=== PATIENT | female | born 1990 | race Caucasian/White ===

== ENCOUNTER 2020-09-21 10:11 | Emergency (ER) | payer OTHER, SELFPAY ==
--- NOTE | ~2020-09-21 | CT_ITS ---
EXAMINATION: CT ANGIOGRAM OF THE CHEST WITH AND WITHOUT CONTRAST (CT PULMONARY ANGIOGRAM FOR PE) CLINICAL INFORMATION: Reason for Exam + covid 13 days ago c persistent fevers, cough, sob.chest pa COMPARISON: None TECHNIQUE: Prior to contrast administration, noncontrast localization images were obtained. Subsequently, multidetector volumetric imaging was performed from the thoracic inlet to below the diaphragms following the administration of 70 mL Omnipaque 350 intravenous contrast. No contrast reaction reported Sagittal, coronal, and MIP oblique sagittal reformatted images were obtained on the CT workstation, uploaded to PACS, and reviewed. This CT examination was performed using dose optimization techniques as appropriate, variously including the following: *Automated exposure control *Adjustment of mA and/or kV according to patient size (this includes techniques or standardized protocols for targeted exams where dose is matched to indication/reason for exam; i.e. extremities or head) *Use of iterative reconstruction technique Total exam dose-length product 343 mGy-cm FINDINGS: QUALITY OF STUDY/CONTRAST BOLUS: Opacification of the pulmonary arteries is limited due to timing of contrast injection. PULMONARY ARTERIES: There is no evidence of central pulmonary embolism. Evaluation of the smaller segmental and subsegmental pulmonary arteries is limited. THORACIC AORTA: No aneurysm or dissection. LUNG: The lung volumes are low. There is patchy bilateral airspace disease and nodular opacities. This is greatest in the left lower lobe. This probably represents pneumonia. PLEURA: No pleural effusion or pneumothorax. MEDIASTINUM: Normal heart size. No pericardial effusion. No hilar or mediastinal lymphadenopathy. No evidence of septal bowing or right heart strain. CHEST WALL/AXILLA: There is shotty bilateral axillary lymphadenopathy. No chest wall mass is seen. OSSEOUS STRUCTURES: No acute or suspicious osseous abnormality. UPPER ABDOMEN: The gallbladder has been removed. No reflux of contrast into the hepatic veins to suggest elevated right heart pressures. CT/CT angio chest PE protocol IMPRESSION: Limited exam. There is no evidence of large or central pulmonary embolism. Evaluation of the segmental and subsegmental pulmonary arteries is limited due to timing of contrast injection. Bilateral nodular opacities and airspace disease suggestive of pneumonia. VTE: negative
[2020-09-21 10:30] VITALS: BP 128/68; BP 130/62; PULSE 100; RESP 14; TEMP 37.1; O2SAT 95; O2SAT 99; BMI 39.0
--- NOTE | 2020-09-21 10:54 | ECG_ITS ---
Test Reason : Chest pain/shortness of breath positive COVID Blood Pressure : / mmHG Vent. Rate : 106 BPM Atrial Rate : 106 BPM P-R Int : 140 ms QRS Dur : 072 ms QT Int : 328 ms P-R-T Axes : 040 023 -01 degrees QTc Int : 435 ms Artifact in tracing Sinus tachycardia Nonspecific T wave abnormality Abnormal ECG When compared to the previous EKG of [address] and T wave abnormality more prominent Referred By: Altagracia Wilson Electronically Signed By:ALINA NEWMAN
[2020-09-21 11:21] LABS: MANUAL DIFF FLAG NO
[2020-09-21 11:24] LABS: Basophils Percent Auto 0.1 % (0-2); Hematocrit 36.7 % (37-47); Hemoglobin 11.7 g/dl (12.0-16.0); Imm Gran Abs Auto 0.08 X10*3/uL (0.00-0.03); Imm Gran Pct Auto 0.7 % (0.0-0.4); Lymphocytes Absolute Auto 1.4 X10*3/uL (1.2-4.9); Lymphocytes Percent Auto 11.2 % (20-40); Mean Corpuscular HGB Conc 31.9 g/dl (31.0-35.0); Mean Corpuscular Hemoglobin 25.2 pg (27.0-33.0); Mean Corpuscular Volume 79.1 fL (80-98); Mean Platelet Volume 9.5 fL (9.4-12.3); Monocytes Absolute Auto 0.6 X10*3/uL (0.1-1.2); Monocytes Percent Auto 4.9 % (2-11); Neutrophils Percent Auto 83.1 % (45-73); Platelet Count 323 X10*3/uL (160-400); Red Blood Count 4.64 X10*6/uL (4.20-5.50); Red Cell Distribution Width 15.8 % (11.0-16.0)
[2020-09-21 11:32] LABS: INTERNATIONAL NORM RATIO 1.2 (0.9-1.1)
[2020-09-21 11:34] LABS: Partial Thromboplastin Time 35.2 SEC (24.1-38.0)
[2020-09-21 11:36] LABS: D Dimer < 200 NG/ML
[2020-09-21 11:52] LABS: C Reactive Protein 8.14 mg/dL (< or = 0.50); Lactate Dehydrogenase 391 U/L (122-220); Magnesium 1.9 mg/dL (1.6-2.6)
[2020-09-21 11:57] LABS: B Type Natriuretic Peptide < 10 pg/mL (<100); Troponin-I High Sensitivity < 3.5 ng/L (<3.5-17.0)
[2020-09-21 12:01] LABS: Influenza A PCR NEGATIVE (Negative); Influenza B PCR NEGATIVE (Negative); Resp Syncy Virus RNA Qual PCR NEGATIVE (Negative); SARS COV2 PCR INHOUSE POSITIVE (Negative)
[2020-09-21 12:11] LABS: Procalcitonin 0.06 ng/mL
[2020-09-21 12:13] LABS: Ferritin 298 ng/mL (10-122)
--- NOTE | 2020-09-21 12:23 | ED.SOB ---
HPI - SOB/Dyspnea General Chief Complaint: Upper Respiratory Symptoms Stated Complaint: covid Time Seen by Provider: 09/21/20 10:35 Source: patient and EMS Mode of arrival: EMS Limitations: language barrier ([place]-speaking) History of Present Illness HPI Narrative: 30-year-old female with a past medical history of anxiety, depression, leukocytosis and recently tested positive approximately 13 days ago for COVID 19 presenting to the ED via EMS with complaints of fevers, dry cough with shortness of breath with pain on deep inspiration with associated chest tightness for the past 13 days worse today. Reports she called her PCP and they instructed her to come here for further evaluation treatment to rule out pneumonia. Patient reports all her other family members in the same household are better and she is not. She denies any headaches, dizziness, lightheadedness, changes in vision, jaw pain, paresthesias, neck pain/stiffness, nausea/vomiting, abdominal pain, back pain, dysuria, hematuria, black or bloody stools, diarrhea or constipation or lower extremity edema or any other symptoms complaints or concerns at this time. MD elicited complaint: shortness of breath, cough, pain with inspiration and chest pain Pertinent past history: other (Tested positive for COVID 13 days ago) Onset (ago): day(s) (Thirteen days worse today) Context: recent illness Timing: constant and progressively worsening Severity: severe Exacerbating factors: coughing, inspiration and deep breaths Relieving factors: nothing Known history of: other (COVID positive) Associated symptoms: pain with inspiration and cough Treatment prior to arrival: none Related Data Home oxygen amount: none Previous Rx's Medication Instructions Recorded acetaminophen [Tylenol Extra 1,000 mg PO QID PRN #14 tab 09/21/20 Strength] albuterol sulfate 0.63 mg INHALATION QID PRN #75 ml 09/21/20 azithromycin See Rx Instructions .ROUTE 09/21/20 .COMPLEX #6 tab codeine-guaifenesin 5 ml PO Q6H PRN #473 ml 09/21/20 dexamethasone [Decadron] 6 mg PO DAILY 7 Days #7 tab 09/21/20 doxycycline monohydrate 100 mg PO BID 10 Days #20 cap 09/21/20 ibuprofen 800 mg PO Q8H PRN #14 tab 09/21/20 Allergies Allergy/AdvReac Type Severity Reaction Status Date / Time No Known Allergies Allergy Unverified 03/01/20 17:16 Review of Systems Review of Systems: Constitutional : + Fevers/chills, + fatigues, + malaise, No Weight loss, No Night Sweats ENT/Mouth : No Hearing loss, No Ear Pain, No Nasal Congestion, No Sinus Pain, No Hoarseness, No sore throat, No Rhinorrhea, No Swallowing Difficulty Eyes: No Eye Pain, No Swelling, No Redness, No Foreign Body, No Discharge, No Vision Changes Cardiovascular : + SOB, + Chest tightness, no Dyspnea on Exertion, No Orthopnea, No Edema, No extremity swelling, No Palpitations Respiratory : No Cough, No Sputum, No Wheezing, No Dyspnea Gastrointestinal : No Nausea, No Vomiting, No Diarrhea, No abdominal Pain, No Hematochezia, No Melena Genitourinary : No irregular bleeding, No Dysuria, No Urinary Frequency, No Hematuria, No Urinary Incontinence, No Urgency, No Flank Pain, No Urinary Flow Changes, No nHesitancy Musculoskeletal : No joint pain, No Myalgias, No Joint Swelling Skin : No Skin Lesions, No rash Neuro : No Weakness, No Numbness, No Paresthesias, No Loss of Consciousness, No Dizziness, No Headache Psych : No Anxiety/Panic, No Depression, No SI/HI/AH/VH Heme/Lymph: No Bruising, No Bleeding,No Lymphadenopathy Endocrine : No Polyuria, No Polydipsia, No Temperature Intolerance Yes all other systems are reviewed and are negative [facility] Past Medical History Attestation statement: The following information was validated with the patient. Social History Social History Advance Directives: No Advance Directives Information Provided: No Physical Exam Vital Signs: Vital Signs: Last Vital Signs Temp 100.0 F 09/21/20 15:01 Pulse 110 H 09/21/20 15:01 Resp 18 09/21/20 15:01 BP 126/84 09/21/20 15:01 Pulse Ox 95 09/21/20 15:01 Body Mass Index 39.0 vital signs have been reviewed as normal and appeared to be correct. Blood pressure normal. Heart rate normal. Respiration rate normal. Temperature normal. Oxygen saturation normal. Appearance: Alert. Oriented X3. In mild acute respiratory distress otherwise no other acute distress. Head: Normal external exam. Normocephalic. Eyes: PERRLA. EOMI. Conjunctiva and sclera normal. Eyelids normal. ENT: Pharynx normal. Uvula midline. Moist mucous membranes. No trismus noted. No drooling noted. No muffled voice noted. Neck: Normal inspection. Neck supple. FROM. No adenopathy. No meningeal signs. CVS: Normal heart rate and rhythm. Heart sound normal. No murmurs noted. Pulses normal throughout. Respiratory: Mild respiratory distress. Patient with decreased breath sounds throughout with pain on inspiration. Otherwise No wheezes/rales/rhonchi noted. Chest nontender. No accessory muscle usage noted. Abdomen: Soft and nontender. Nondistended. No guarding. No rigidity. Bowel sounds normal in all 4 quadrants. No distention noted. No organomegaly noted. No visible injury noted. No rebound tenderness. Negative Rovsing sign. Negative obturator's sign. Negative psoas sign. Negative Díaz sign. Back: No CVA tenderness. Full range of motion noted. Skin: Skin warm and dry. Normal skin color. Normal skin turgor. No rashes/lesions/lacerations noted. Extremities: No lower extremity edema noted. No calf tenderness noted. Extremities exhibit normal range of motion. Extremities nontender. Neuro: Oriented X 3. No motor deficit. No sensory deficit. Reflexes normal. Course Course Course Narrative: 10:55am - 30-year-old female who tested positive approximately 13 days ago for COVID-19 presenting to the ED with complaints of fevers, dry cough with shortness of breath with pain on deep inspiration with associated chest tightness for the past 13 days worse today. - on exam patient is alert and oriented x3. In mild respiratory distress with decreased breath sounds throughout and pain on inspiration otherwise no wheezes/rales/rhonchi noted. Chest is nontender. CV RRR. Abdomen is soft and nontender. No focal neuro deficits are noted. No lower extremity edema noted. No calf tenderness noted. - Plan: Labs, CT scan of chest for PE, EKG, blood cultures, lactic acid. Provide a L of IV fluids with 2 g of Rocephin, 10 mg of Robitussin with codeine and 10 mg of IV Decadron then re-evaluate. Reevaluation(s) Reevaluation #1: - patient with elevated white blood cell count and elevated COVID labs otherwise all other labs were within normal limits including troponin and BNP. Serum quant negative for . UA negative for or evidence of UTI. Patient still positive for COVID although she understood this. - EKG was normal sinus tachycardia no acute ischemic changes were noted. - CTA of chest for PE negative for PE although revealed pneumonia. - patient's oxygen saturation is at 95% on room air even with walking therefore she does not need admission at this time - patient reports she feels better after the breathing treatment the Robitussin with codeine and the IV Decadron and fluids - therefore will DC home at this time with instructions to monitor her oxygen saturation and with antibiotics and Decadron instructions to return if any new or worsening symptoms to follow up with primary care provider and to continue self isolating. Patient understands agrees with this plan. Time: 16:01 MDM - SOB/Dyspnea Medical Records Attestation: I reviewed the patient's medical records. Lab Data Attestation: I reviewed the patient's lab results. Result diagrams: 09/21/20 11:07 09/21/20 11:07 Labs: Lab Results 09/21/20 09/21/20 09/21/20 Range/Units 11:07 11:07 11:07 WBC 12.0 H (4.8-10.8) X10*3/uL RBC 4.64 (4.20-5.50) X10*6/uL Hgb 11.7 L (12.0-16.0) g/dl Hct 36.7 L (37-47) % MCV 79.1 L (80-98) fL MCH 25.2 L (27.0-33.0) pg MCHC 31.9 (31.0-35.0) g/dl RDW 15.8 (11.0-16.0) % Plt Count 323 (160-400) X10*3/uL MPV 9.5 (9.4-12.3) fL Immature Gran % (Auto) 0.7 H (0.0-0.4) % Neut % (Auto) 83.1 H (45-73) % Lymph % (Auto) 11.2 L (20-40) % [place] % (Auto) 4.9 (2-11) % Eos % (Auto) 0.0 (0-4) % Baso % (Auto) 0.1 (0-2) % Lymph # (Auto) 1.4 (1.2-4.9) X10*3/uL [place] # (Auto) 0.6 (0.1-1.2) X10*3/uL Eos # (Auto) 0.0 (0.0-0.4) X10*3/uL Baso # (Auto) 0.0 (0.0-0.2) X10*3/uL Abs Immat Gran (auto) 0.08 H (0.00-0.03) X10*3/uL Absolute Neuts (auto) 10.0 H (2.0-8.3) X10*3/uL Absolute Nucleated RBC 0.000 (0.0-0.012) X10*3/uL Nucleated RBC % (auto) 0.0 (0.0-0.2) /100WBC PT 14.0 H (10.8-13.0) SEC INR 1.2 H (0.9-1.1) APTT 35.2 (24.1-38.0) SEC D-Dimer < 200 NG/ML Sodium (135-145) mmol/L Potassium (3.3-5.1) mmol/L Chloride (96-108) mmol/L Carbon Dioxide (22-29) mmol/L Anion Gap (12-20) BUN (9-16) mg/dL Creatinine (0.5-1.4) mg/dL Estim Creat Clear Calc Estimated GFR Random Glucose (60-115) mg/dL Calcium (8.4-10.2) mg/dL Magnesium 1.9 (1.6-2.6) mg/dL Ferritin (10-122) ng/mL Total Bilirubin (0.0-1.0) mg/dL AST (5-31) U/L ALT (0-31) U/L Alkaline Phosphatase (39-117) U/L Lactate Dehydrogenase 391 H (122-220) U/L Troponin I High Sens (<3.5-17.0) ng/L C-Reactive Protein 8.14 H (< or = 0.50) mg/dL B-Natriuretic Peptide (<100) pg/mL Total Protein (6.5-8.0) g/dL Albumin (3.5-5.0) g/dL Procalcitonin ng/mL Beta HCG, Quant mIU/mL Urine Color Urine Appearance Urine pH (5.0-8.0) Ur Specific [place] (1.005-1.025) Urine Protein (NEG-TRACE) MG/DL Urine Glucose (UA) (NEG) MG/DL Urine Ketones (NEG) MG/DL Urine Blood (NEG) Urine Nitrite (NEG) Ur Leukocyte Esterase (NEG) Urine RBC (0) /HPF Urine WBC (0-4) /HPF Ur Squamous Epith Cells /LPF Urine Bacteria /LPF Urine Test (NEGATIVE) Coronavirus (PCR) (Negative) Influenza Type A (PCR) (Negative) Influenza Type B (PCR) (Negative) RSV RNA Qual (PCR) (Negative) 09/21/20 09/21/20 09/21/20 Range/Units 11:07 11:07 11:07 WBC (4.8-10.8) X10*3/uL RBC (4.20-5.50) X10*6/uL Hgb (12.0-16.0) g/dl Hct (37-47) % MCV (80-98) fL MCH (27.0-33.0) pg MCHC (31.0-35.0) g/dl RDW (11.0-16.0) % Plt Count (160-400) X10*3/uL MPV (9.4-12.3) fL Immature Gran % (Auto) (0.0-0.4) % Neut % (Auto) (45-73) % Lymph % (Auto) (20-40) % [place] % (Auto) (2-11) % Eos % (Auto) (0-4) % Baso % (Auto) (0-2) % Lymph # (Auto) (1.2-4.9) X10*3/uL [place] # (Auto) (0.1-1.2) X10*3/uL Eos # (Auto) (0.0-0.4) X10*3/uL Baso # (Auto) (0.0-0.2) X10*3/uL Abs Immat Gran (auto) (0.00-0.03) X10*3/uL Absolute Neuts (auto) (2.0-8.3) X10*3/uL Absolute Nucleated RBC (0.0-0.012) X10*3/uL Nucleated RBC % (auto) (0.0-0.2) /100WBC PT (10.8-13.0) SEC INR (0.9-1.1) APTT (24.1-38.0) SEC D-Dimer NG/ML Sodium 139 (135-145) mmol/L Potassium 3.7 (3.3-5.1) mmol/L Chloride 104 (96-108) mmol/L Carbon Dioxide 24 (22-29) mmol/L Anion Gap 15 (12-20) BUN 7 L (9-16) mg/dL Creatinine 0.57 (0.5-1.4) mg/dL Estim Creat Clear Calc 161.2 Estimated GFR > 60 Random Glucose 89 (60-115) mg/dL Calcium 8.5 (8.4-10.2) mg/dL Magnesium (1.6-2.6) mg/dL Ferritin 298 H (10-122) ng/mL Total Bilirubin 0.7 (0.0-1.0) mg/dL AST 63 H (5-31) U/L ALT 82 H (0-31) U/L Alkaline Phosphatase 128 H (39-117) U/L Lactate Dehydrogenase (122-220) U/L Troponin I High Sens < 3.5 (<3.5-17.0) ng/L C-Reactive Protein (< or = 0.50) mg/dL B-Natriuretic Peptide < 10 (<100) pg/mL Total Protein 7.1 (6.5-8.0) g/dL Albumin 4.1 (3.5-5.0) g/dL Procalcitonin ng/mL Beta HCG, Quant < 2 mIU/mL Urine Color Urine Appearance Urine pH (5.0-8.0) Ur Specific [place] (1.005-1.025) Urine Protein (NEG-TRACE) MG/DL Urine Glucose (UA) (NEG) MG/DL Urine Ketones (NEG) MG/DL Urine Blood (NEG) Urine Nitrite (NEG) Ur Leukocyte Esterase (NEG) Urine RBC (0) /HPF Urine WBC (0-4) /HPF Ur Squamous Epith Cells /LPF Urine Bacteria /LPF Urine Test (NEGATIVE) Coronavirus (PCR) POSITIVE A (Negative) Influenza Type A (PCR) NEGATIVE (Negative) Influenza Type B (PCR) NEGATIVE (Negative) RSV RNA Qual (PCR) NEGATIVE (Negative) 09/21/20 09/21/20 09/21/20 Range/Units 11:07 13:52 13:52 WBC (4.8-10.8) X10*3/uL RBC (4.20-5.50) X10*6/uL Hgb (12.0-16.0) g/dl Hct (37-47) % MCV (80-98) fL MCH (27.0-33.0) pg MCHC (31.0-35.0) g/dl RDW (11.0-16.0) % Plt Count (160-400) X10*3/uL MPV (9.4-12.3) fL Immature Gran % (Auto) (0.0-0.4) % Neut % (Auto) (45-73) % Lymph % (Auto) (20-40) % [place] % (Auto) (2-11) % Eos % (Auto) (0-4) % Baso % (Auto) (0-2) % Lymph # (Auto) (1.2-4.9) X10*3/uL [place] # (Auto) (0.1-1.2) X10*3/uL Eos # (Auto) (0.0-0.4) X10*3/uL Baso # (Auto) (0.0-0.2) X10*3/uL Abs Immat Gran (auto) (0.00-0.03) X10*3/uL Absolute Neuts (auto) (2.0-8.3) X10*3/uL Absolute Nucleated RBC (0.0-0.012) X10*3/uL Nucleated RBC % (auto) (0.0-0.2) /100WBC PT (10.8-13.0) SEC INR (0.9-1.1) APTT (24.1-38.0) SEC D-Dimer NG/ML Sodium (135-145) mmol/L Potassium (3.3-5.1) mmol/L Chloride (96-108) mmol/L Carbon Dioxide (22-29) mmol/L Anion Gap (12-20) BUN (9-16) mg/dL Creatinine (0.5-1.4) mg/dL Estim Creat Clear Calc Estimated GFR Random Glucose (60-115) mg/dL Calcium (8.4-10.2) mg/dL Magnesium (1.6-2.6) mg/dL Ferritin (10-122) ng/mL Total Bilirubin (0.0-1.0) mg/dL AST (5-31) U/L ALT (0-31) U/L Alkaline Phosphatase (39-117) U/L Lactate Dehydrogenase (122-220) U/L Troponin I High Sens (<3.5-17.0) ng/L C-Reactive Protein (< or = 0.50) mg/dL B-Natriuretic Peptide (<100) pg/mL Total Protein (6.5-8.0) g/dL Albumin (3.5-5.0) g/dL Procalcitonin 0.06 ng/mL Beta HCG, Quant mIU/mL Urine Color DARK YELLOW Urine Appearance HAZY Urine pH 6.0 (5.0-8.0) Ur Specific [place] 1.025 (1.005-1.025) Urine Protein TRACE (NEG-TRACE) MG/DL Urine Glucose (UA) NEG (NEG) MG/DL Urine Ketones NEG (NEG) MG/DL Urine Blood TRACE (NEG) Urine Nitrite NEG (NEG) Ur Leukocyte Esterase NEG (NEG) Urine RBC 0-2 (0) /HPF Urine WBC 0 (0-4) /HPF Ur Squamous Epith Cells TRACE /LPF Urine Bacteria NONE /LPF Urine Test NEGATIVE (NEGATIVE) Coronavirus (PCR) (Negative) Influenza Type A (PCR) (Negative) Influenza Type B (PCR) (Negative) RSV RNA Qual (PCR) (Negative) Imaging Data CT of chest for PE: Attestation: I personally reviewed and interpreted this imaging study as follows: Radiologist's impression: FINDINGS: QUALITY OF STUDY/CONTRAST BOLUS: Opacification of the pulmonary arteries is limited due to timing of contrast injection. PULMONARY ARTERIES: There is no evidence of central pulmonary embolism. Evaluation of the smaller segmental and subsegmental pulmonary arteries is limited. THORACIC AORTA: No aneurysm or dissection. LUNG: The lung volumes are low. There is patchy bilateral airspace disease and nodular opacities. This is greatest in the left lower lobe. This probably represents pneumonia. PLEURA: No pleural effusion or pneumothorax. MEDIASTINUM: Normal heart size. No pericardial effusion. No hilar or mediastinal lymphadenopathy. No evidence of septal bowing or right heart strain. CHEST WALL/AXILLA: There is shotty bilateral axillary lymphadenopathy. No chest wall mass is seen. OSSEOUS STRUCTURES: No acute or suspicious osseous abnormality. UPPER ABDOMEN: The gallbladder has been removed. No reflux of contrast into the hepatic veins to suggest elevated right heart pressures. CT/CT angio chest PE protocol IMPRESSION: Limited exam. There is no evidence of large or central pulmonary embolism. Evaluation of the segmental and subsegmental pulmonary arteries is limited due to timing of contrast injection. Bilateral nodular opacities and airspace disease suggestive of pneumonia. VTE: negative ECG Data Attestation: I personally reviewed and interpreted this ECG as follows: ECG interpretation date: 09/21/20 ECG interpretation time: 11:27 Interpretation: Sinus tachycardia with fusion complexes with a ventricular rate of 106 with nonspecific T-wave abnormalities no acute ischemic changes noted. Compared to prior EKG 11/20/2005 Critical Care Time Critical Care Time Critical Care Time: Yes Total Critical Care Time: 60 Attestation: I personally attest to this time spent taking care of the patient Discharge Plan Discharge Clinical Impression: COVID-19, Pneumonia due to COVID-19 virus Patient Disposition: Home, Self-Care Instructions: Pneumonia (ED), COVID-19 (Coronavirus Disease 2019) (ED) Prescriptions: New dexamethasone [Decadron] 6 mg tablet 6 mg PO DAILY 7 Days Qty: 7 RF: 0 albuterol sulfate 0.63 mg/3 mL solution for nebulization 0.63 mg inhalation QID PRN (Reason: shortness of breath or wheezing) Qty: 75 RF: 0 azithromycin 250 mg tablet See Rx Instructions .ROUTE .COMPLEX Qty: 6 RF: 0 acetaminophen [Tylenol Extra Strength] 500 mg tablet 1,000 mg PO QID PRN (Reason: fever or pain) Qty: 14 RF: 0 doxycycline monohydrate 100 mg capsule 100 mg PO BID 10 Days Qty: 20 RF: 0 ibuprofen 800 mg tablet 800 mg PO Q8H PRN (Reason: pain) Qty: 14 RF: 0 codeine-guaifenesin 10-200 mg/5 mL liquid 5 ml PO Q6H PRN (Reason: cough ) Qty: 473 RF: 0 Referrals: Osito Day MD [Primary Care Provider] - 2 days Print Language: [place]
[2020-09-21] MEDS: Albuterol Sulfate (0.083%) 2.5 MG/3 ML VIAL.NEB 5 MG INHALE (12:27)
[2020-09-21 12:29] VITALS: PULSE 114; O2SAT 95
[2020-09-21 13:04] LABS: HCG Quantitative < 2 mIU/mL
[2020-09-21 13:08] LABS: Alanine Aminotransferase 82 U/L (0-31); Albumin Level 4.1 g/dL (3.5-5.0); Alkaline Phosphatase 128 U/L (39-117); Anion Gap 15 (12-20); Aspartate Amino Transferase 63 U/L (5-31); Bilirubin Total 0.7 mg/dL (0.0-1.0); Blood Urea Nitrogen 7 mg/dL (9-16); Calcium 8.5 mg/dL (8.4-10.2); Carbon Dioxide 24 mmol/L (22-29); Chloride 104 mmol/L (96-108); Creatinine Clr Calc Pharmacy 161.2; Estimated Glomerular Filt Rate > 60; Glucose Random 89 mg/dL (60-115); Potassium 3.7 mmol/L (3.3-5.1); Sodium 139 mmol/L (135-145); Total Protein 7.1 g/dL (6.5-8.0)
[2020-09-21] MEDS: cefTRIAXone sodium 2 GM in 0.9 % Sodium Chloride 50 ML IV (13:53)
[2020-09-21] MEDS: 0.9 % Sodium Chloride 1,000 ML 999 ML IVCONT (13:53)
[2020-09-21] MEDS: guaiFEN/Codeine SF 200/20/10ML 10 ML LIQUID PO (13:53)
[2020-09-21 14:13] LABS: Glucose Urine UA NEG (NEG); Leukocyte Esterase Urine NEG (NEG); Nitrite Urine NEG (NEG); Specific Gravity - Urine 1.025 (1.005-1.025); Urine Blood TRACE (NEG); Urine Ketones NEG (NEG); Urine Protein TRACE MG/DL (NEG-TRACE)
[2020-09-21 14:14] LABS: Appearance Urine HAZY; Color Urine DARK YELLOW
[2020-09-21 14:16] LABS: UPreg QC Valid YES; Urine Pregnancy NEGATIVE (NEGATIVE)
[2020-09-21 14:26] LABS: RBC Urine 0-2 /HPF (0); Squamous Epithelial Cell Urine TRACE /LPF; WBC Urine 0 /HPF (0-4)
[2020-09-21] MEDS: iohexoL 350 MG/ML 100 ML INFUS..BTL IV (14:41)
[2020-09-21 15:01] VITALS: BP 126/84; PULSE 110; RESP 18; TEMP 37.8; O2SAT 95
[2020-09-21] MEDS: Acetaminophen 325 MG TABLET 975 MG PO (15:41)
--- NOTE | 2020-09-21 15:53 | PC.NURSE ---
PT DRINKING PO FLUIDS, RESP WNL, NO DIFF BREATHING OR CP, NO CYANOSIS.
== END 2020-09-21 16:35 | disposition home or self-care (01) ==
PROVIDERS: Physician Assistant Medical; Emergency Provider Emergency Medicine; PCP Internal Medicine
DX: U07.1 COVID-19 (principal); J12.82 Pneumonia due to coronavirus disease 2019; R00.0 Tachycardia, unspecified; R50.9 Fever, unspecified
CPT/HCPCS: 0241U; 36415; 71275; 80053; 81001; 81025; 82728; 83615; 83735; 83880; 84145; 84484; 84702; 85025; 85379; 85610; 85730; 86140; 87040; 93005; 94640; 96361; 96365; 96374; 96375; 99284; 99291; J0696; J1100; Q9967

== ENCOUNTER 2021-07-15 12:09 | Outpatient (REF) | payer OTHER, SELFPAY ==
[2021-07-15 13:26] LABS: Baso%MD 0.3 %; Eos%MD 4.3 %; Hemoglobin 11.2 g/dl (12.0-16.0); IG%MD 0.6 %; Lymph%MD 15.9 %; Mean Corpuscular HGB Conc 31.1 g/dl (31.0-35.0); Mean Corpuscular Volume 80.4 fL (80.0-98.0); Mean Platelet Volume 9.4 fL (9.4-12.3); Mono%MD 4.9 %; Platelet Count 520 X10*3/uL (160-400); Red Blood Count 4.48 X10*6/uL (4.20-5.50); White Blood Count 14.8 X10*3/uL (4.8-10.8)
[2021-07-15 13:51] LABS: Alanine Aminotransferase 37 U/L (0-31); Albumin Level 4.2 g/dL (3.5-5.0); Alkaline Phosphatase 96 U/L (39-117); Anion Gap 13 (12-20); Aspartate Amino Transferase 21 U/L (5-31); Bilirubin Total 0.3 mg/dL (0.0-1.0); Blood Urea Nitrogen 8 mg/dL (9-16); Calcium 9.7 mg/dL (8.4-10.2); Carbon Dioxide 24 mmol/L (22-29); Chloride 108 mmol/L (96-108); Estimated Glomerular Filt Rate > 60; Glucose Random 82 mg/dL (60-115); Potassium 4.5 mmol/L (3.3-5.1); Sodium 140 mmol/L (135-145); Total Protein 7.2 g/dL (6.5-8.0)
[2021-07-15 14:12] LABS: TSH reflex Free T4 1.28 uIU/mL (0.32-4.0)
[2021-07-15 15:12] LABS: Band Neutrophils Percent 0 % (3-5); Eosinophils Absolute Manual 0.4 X10*3/uL (0.0-0.4); Eosinophils Percent Manual 3 % (0-4); Lymphocytes Absolute Manual 2.1 X10*3/uL (1.2-4.9); Lymphocytes Percent Manual 14 % (20-40); Monocytes Absolute Manual 0.4 X10*3/uL (0.1-1.2); Monocytes Percent Manual 3 % (2-11); Neutrophils Absolute Manual 11.8 X10*3/uL (2.0-8.3); Neutrophils Percent Manual 80 % (45-73)
[2021-07-15 15:13] LABS: Hypochromasia 1+ (5-14) /OIF; Platelet Estimate INCREASED (NORMAL); Platelet Morphology Comment NORMAL; RBC Morphology NOTED
[2021-07-16 23:08] LABS: Prolactin 5.2 ng/mL
== END 2021-07-15 12:10 | disposition home or self-care (01) ==
LOC: HO.LAB 12:09
PROVIDERS: PCP Internal Medicine; Visit Provider Nurse Practitioner Acute Care
DX: N64.3 Galactorrhea not associated with childbirth (principal)
CPT/HCPCS: 36415; 80053; 84146; 84443; 85007; 85027

== ENCOUNTER 2024-10-09 11:36 | Emergency (ER) | payer OTHER, SELFPAY ==
[2024-10-09 11:43] VITALS: BP 131/80; PULSE 85; RESP 19; TEMP 36.6; O2SAT 98; BMI 43.1
--- NOTE | 2024-10-09 11:50 | ED.GENADULT ---
HPI - General Adult General Chief complaint: Nausea/Vomiting/Diarrhea Stated complaint: n/v, unable to eat History of Present Illness HPI narrative: Patient left before completion of treatment by ED provider. Related Data Previous Rx's ?Medication ?Instructions ?Recorded sulfamethoxazole 800 1 tab PO BID #14 tabs 07/16/21 mg-trimethoprim 160 mg tablet (Bactrim DS) Allergies Allergy/AdvReac Type Severity Reaction Status Date / Time No Known Allergies Allergy Verified 10/09/24 11:46 PMFSH Past Medical History Medical History Anxiety COVID-19 Depression Leukocytosis Pneumonia due to COVID-19 virus Surgical History History of cholecystectomy Family History Family History Father No problems noted. Mother No problems noted. Social History Social History Housing: Apartment Alcohol intake: never Patient Tobacco Use Status: Never used Tobacco Second Hand Smoke Exposure: No Advance Directives: No Advance Directives Information Provided: No Do you have a plan to hurt others: No Plan service: No Current occupational status: disabled Physical Exam ED Vital Signs: Vital Signs - 24 hr 10/09/24 11:43 Temperature 98 F Pulse Rate 85 Respiratory Rate 19 Blood Pressure 131/80 Pulse Oximetry 98 Oxygen Delivery Method Room Air BMI result Body Mass Index 43.1 Course Course Course Narrative: RME: 34 year female presents to ED for 8 days of nausea vomiting without any abdominal pain. Patient states also mild diarrhea. Patient is presently unknown. And does not believe she is . Negative for any abdominal tenderness. Labs ordered Medical Decision Making Lab Data 10/09/24 12:53 10/09/24 12:53 Labs: Lab Results 10/09/24 Range/Units 12:53 WBC 15.5 H (4.8-10.8) X10*3/uL RBC 4.76 (4.20-5.50) X10*6/uL Hgb 12.4 (12.0-16.0) g/dl Hct 38.0 (37.0-47.0) % MCV 79.8 L (80.0-98.0) fL MCH 26.1 L (27.0-33.0) pg MCHC 32.6 (31.0-35.0) g/dl RDW 15.2 (11.0-16.0) % Plt Count 496 H (160-400) X10*3/uL MPV 9.1 L (9.4-12.3) fL Immature Gran % (Auto) 0.4 (0.0-0.4) % Neut % (Auto) 77.3 H (45-73) % Lymph % (Auto) 17.1 L (20-40) % [place] % (Auto) 4.5 (2-11) % Eos % (Auto) 0.5 (0-4) % Baso % (Auto) 0.2 (0-2) % Lymph # (Auto) 2.7 (1.2-4.9) X10*3/uL [place] # (Auto) 0.7 (0.1-1.2) X10*3/uL Eos # (Auto) 0.1 (0.0-0.4) X10*3/uL Baso # (Auto) 0.0 (0.0-0.2) X10*3/uL Abs Immat Gran (auto) 0.06 H (0.00-0.03) X10*3/uL Absolute Neuts (auto) 12.0 H (2.0-8.3) x10*3/uL Absolute Nucleated RBC 0.000 (0.0-0.012) X10*3/uL Nucleated RBC % (auto) 0.0 (0.0-0.2) /100WBC Sodium 142 (135-145) mmol/L Potassium 3.6 (3.3-5.1) mmol/L Chloride 109 H (96-108) mmol/L Carbon Dioxide 21 L (22-29) mmol/L Anion Gap 16 (12-20) BUN 7 L (9-16) mg/dL Creatinine 0.63 (0.5-1.4) mg/dL Estim Creat Clear Calc 132.3 Estimated GFR > 60 Random Glucose 97 (60-115) mg/dL Calcium 9.7 (8.4-10.2) mg/dL Total Bilirubin 0.3 (0.0-1.0) mg/dL AST 24 (5-31) U/L ALT 27 (0-31) U/L Alkaline Phosphatase 98 (39-117) U/L Total Protein 7.5 (6.5-8.0) g/dL Albumin 4.3 (3.5-5.0) g/dL Lipase 21 (8-78) U/L Beta HCG, Quant < 2 mIU/mL Influenza Type A (PCR) NEGATIVE (Negative) Influenza Type B (PCR) NEGATIVE (Negative) RSV RNA Qual (PCR) NEGATIVE (Negative) SARS-CoV-2 RNA (RT-PCR) NEGATIVE (Negative) Discharge Plan Discharge Clinical Impression: Diagnosis unknown Patient Disposition: Left W/O Completing Treatment Prescriptions: No Action sulfamethoxazole-trimethoprim [Bactrim DS] 800-160 mg tablet 1 tab PO BID Qty: 14 0RF Discharge Date/Time: 10/09/24 16:03
[2024-10-09 12:59] LABS: MANUAL DIFF FLAG NO
[2024-10-09 13:02] LABS: Basophils Percent Auto 0.2 % (0-2); Eosinophils Absolute Auto 0.1 X10*3/uL (0.0-0.4); Eosinophils Percent Auto 0.5 % (0-4); Hemoglobin 12.4 g/dl (12.0-16.0); Imm Gran Abs Auto 0.06 X10*3/uL (0.00-0.03); Imm Gran Pct Auto 0.4 % (0.0-0.4); Lymphocytes Absolute Auto 2.7 X10*3/uL (1.2-4.9); Lymphocytes Percent Auto 17.1 % (20-40); Mean Corpuscular HGB Conc 32.6 g/dl (31.0-35.0); Mean Corpuscular Hemoglobin 26.1 pg (27.0-33.0); Mean Corpuscular Volume 79.8 fL (80.0-98.0); Mean Platelet Volume 9.1 fL (9.4-12.3); Monocytes Absolute Auto 0.7 X10*3/uL (0.1-1.2); Monocytes Percent Auto 4.5 % (2-11); Neutrophils Percent Auto 77.3 % (45-73); Platelet Count 496 X10*3/uL (160-400); Red Blood Count 4.76 X10*6/uL (4.20-5.50); Red Cell Distribution Width 15.2 % (11.0-16.0); White Blood Count 15.5 X10*3/uL (4.8-10.8)
[2024-10-09 13:29] LABS: Alanine Aminotransferase 27 U/L (0-31); Albumin Level 4.3 g/dL (3.5-5.0); Alkaline Phosphatase 98 U/L (39-117); Anion Gap 16 (12-20); Aspartate Amino Transferase 24 U/L (5-31); Bilirubin Total 0.3 mg/dL (0.0-1.0); Blood Urea Nitrogen 7 mg/dL (9-16); Calcium 9.7 mg/dL (8.4-10.2); Carbon Dioxide 21 mmol/L (22-29); Chloride 109 mmol/L (96-108); Creatinine Clr Calc Pharmacy 132.3; Estimated Glomerular Filt Rate > 60; Glucose Random 97 mg/dL (60-115); HCG Quantitative < 2 mIU/mL; Lipase 21 U/L (8-78); Potassium 3.6 mmol/L (3.3-5.1); Sodium 142 mmol/L (135-145); Total Protein 7.5 g/dL (6.5-8.0)
[2024-10-09 13:45] LABS: Influenza A PCR NEGATIVE (Negative); Influenza B PCR NEGATIVE (Negative); Resp Syncy Virus RNA Qual PCR NEGATIVE (Negative); SARS COV2 PCR INHOUSE NEGATIVE (Negative)
== END 2024-10-09 16:03 | disposition left against medical advice (07) ==
LOC: HO.ED 15:58
PROVIDERS: Physician Assistant; Emergency Provider Emergency Medicine; PCP Internal Medicine
DX: R11.2 Nausea with vomiting, unspecified (principal); Z03.818 Encounter for observation for suspected exposure to other biological agents ruled out; Z53.21 Procedure and treatment not carried out due to patient leaving prior to being seen by health care provider
CPT/HCPCS: 0241U; 80053; 83690; 84702; 85025; 99281; 99283

== ENCOUNTER 2025-03-21 09:20 | Emergency (ER) | payer OTHER, SELFPAY ==
[2025-03-21 09:40] VITALS: BP 120/61; PULSE 76; RESP 20; TEMP 37; O2SAT 100; BMI 34.3
--- NOTE | 2025-03-21 09:41 | ED.GENADULT ---
HPI - General Adult General Chief complaint: General Medical Stated complaint: Pain R breast Time Seen by Provider: 03/21/25 10:15 Related Data Previous Rx's ?Medication ?Instructions ?Recorded sulfamethoxazole 800 1 tab PO BID #14 tabs 07/16/21 mg-trimethoprim 160 mg tablet (Bactrim DS) Allergies Allergy/AdvReac Type Severity Reaction Status Date / Time No Known Allergies Allergy Verified 03/21/25 09:43 [facility] Past Medical History Medical History Anxiety COVID-19 Depression Leukocytosis Pneumonia due to COVID-19 virus Surgical History History of cholecystectomy Family History Family History Father No problems noted. Mother No problems noted. Social History Social History Housing: Apartment Alcohol intake: never Patient Tobacco Use Status: Never used Tobacco Second Hand Smoke Exposure: No Advance Directives: No Advance Directives Information Provided: No service: No Current occupational status: disabled Physical Exam ED Vital Signs: Vital Signs - 24 hr 03/21/25 09:40 Temperature 98.6 F Pulse Rate 76 Respiratory Rate 20 Blood Pressure 120/61 Pulse Oximetry 100 Oxygen Delivery Method Room Air BMI result Body Mass Index 34.3 Course Course Course Narrative: This is a rapid medical exam performed by Dimitri Lim NP: Additional HPI, ROS, PE not included below will be deferred to primary provider. Patient is a 34y/o F with pmhx of breast CA stage 1 in 2021 with resection presenting with complaint of right breast pain around 7:00, noted a mass. Denies redness, erythema. Area not visualized in triage due to privacy concerns. Denies fevers. Plan: will need full assessment Patient left the emergency department before myself or any of the other clinicians could review or explain physical exam findings, test results, need or lack there of for additional testing, treatment options, or a treatment plan. Discharge Plan Discharge Clinical Impression: Breast mass, right Patient Disposition: Left W/O Completing Treatment Prescriptions: No Action sulfamethoxazole-trimethoprim [Bactrim DS] 800-160 mg tablet 1 tab PO BID Qty: 14 0RF Discharge Date/Time: 03/21/25 10:47
--- OUTSIDE RECORDS SUMMARY | 2025-03-21 11:00 | XMS_ITS | Encounter Summary ---
Author Organization [facility] Address [address] [place] [address] Care Team Providers Care New Car Salesperson Name Role Phone Sammie Nix MD Primary Care Provider [phone] Reason for Referral * Imaging (Emergency) - Authorized Specialty Diagnoses / Procedures Referred By Belkis levy Referred To Contact Radiology Diagnoses Breast mass, right Breast pain, right Procedures MG Mammo Digital Diagnostic w Christiano bilat MG Mammo Digital Diagnostic Right Annelise Joseph CNM [address] [place] [address] Phone: tel: fax: [facility] [id number] [place] [address] Phone: tel: Referral ID Status Reason Start Date Expiration Date V isits Requested Visits Authorized [id number] Authorized 03/21/2025 03/21/2026 1 1 * Consultation (Urgent) - Authorized Specialty Diagnoses / Procedures Referred By Belkis levy Referred To Contact Breast Surgery Diagnoses Breast mass, right Breast pain, right Annelise Joseph CNM [address] [place] [address] Phone: tel: fax: Breast [address] [address] Phone: tel: fax: Referral ID Status Reason Start Date Expiration Date Visits Requested Visits Authorized [id number] Authorized Specialty Services Required 03/21/2025 03/21/2026 1 1 * Imaging (Emergency) - Authorized Specialty Diagnoses / Procedures Referred By Belkis levy Referred To Contact Radiology Diagnoses Breast mass, right Breast pain, right Procedures US Breast Limited Right Annelise Joseph CNM [address] [place] [address] Phone: tel: fax: [facility] [address] [place] [address] Phone: tel: Referral ID Status Reason Start Date Expiration Date V isits Requested Visits Authorized [id number] Authorized 03/21/2025 03/21/2026 1 1 Reason for Visit * Reason Comments Breast Mass Right breast Encounter Details Date Type Department Care Team (Late st Contact Info) Description 03/21/2025 11:00 AM EDT Office Visit Obstetrics and Gynecology - [address] [phone] Annelise Joseph CNM [address] [place] [address] Breast mass, right (Primary Dx); Breast pain, right Social History Tobacco Use Types Packs/Day Years Used Date Smoking Tobacco: Never Smokeless Tobacco: Never Alcohol Use Standard Drinks/Week Comments Not Currently 0 (1 standard drink = 0.6 oz pur e alcohol) Comments No Sex and Gender Information Value Date Recorded Sex Assigned at Not on file Legal Sex Female 12:24 AM EST Gender Identity Not on file Sexual Orientation Not on file documented as of this encounter Last Filed Vital Signs Vital Sign Reading Time Taken Comments Blood Pressure 108/77 03/21/2025 11:20 AM EDT Pulse 78 03/21/2025 11:20 AM EDT Temperature - - Respiratory Rate 14 03/21/2025 11:20 AM EDT Oxygen Saturation - - Inhaled Oxygen Concentration - - Weight 97.5 kg (215 lb) 03/21/2025 11:20 AM EDT Height - - Body Mass Index 39.32 09/08/2024 9:32 AM EDT documented in this encounter Progress Notes * Annelise Joseph CNM - 03/21/2025 11:00 AM EDT 03/21/2025 Chief Complaint Patient presents with Breast Mass Right breast Subjective: Rosaura aHnsen is a 34 y.o. who presents for mass and pain in right breast for past two weeks. Denies fever, skin changes, and nipple discharge Has had same sx in left breast and needed abscess drained. Review of Systems: As in HPI. Problem List[1] Medical History[2] Surgical History[3] Family History[4] Social History Socioeconomic History Marital status: Single Spouse name: None Number of children: None Years of education: 10 th Highest education level: None Occupational History None Tobacco Use Smoking status: Never Smokeless tobacco: Never Substance and Sexual Activity Alcohol use: Not Currently Drug use: Not Currently Types: Marijuana/Cannabis Sexual activity: Yes Partners: Male control/protection: Condom Comment: x 15 years Other Topics Concern None Social History Narrative 03/23/2018- 27 Y/O To office for initial intake. Pt has had 4 vaginal dels with no complications. Pt states hx of epilepsy. She states she was diagnosed in [place] at age 14. Pt states her last seizure was in 2009. Pt does not take meds. Pt villanueva s hx of depression/anxiety. No meds since 2013. She was seeing a therapist at [facility]. Stoppedin 2016. Pt is aware of [facility] services. Pt denies drug alcohol or tobacco use. Pt is aware of UDS today. 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 She is to [place]. Pt stopped school at 10th grade. Pt states this is unplanned however they are happy. Pt has an appoint sched with [facility]. Dating u/s sched. Pt states LMP was not normal. Only lasted 1 day. Allwarning signs d/w pt. Pt states understanding. Zi ka Virus Exposure Screening Rosaura Hansen has not traveled to an area with Zika Virus transmission. Sexual partner has not traveled to an area with Zika Virus transmission. OB History Para Term AB Living 6 4 4 0 1 5 SAB IAB Ectopic Multiple Live Births 1 0 0 0 5 # Outcome Date GA Lbr Juan/2nd Weight Sex Type Anes PTL Lv 6 Term 07/05/16 38w0d 2722 g F Vag-Spont EPI N KARMA 5 SAB 2014 4 Term 06/06/12 38w0d 2722 g M Vag-Spont None N KARMA 3 Term 07/23/10 40w0d 2722 g F Vag-Spont None N KARMA 2 Term 11/16/08 40w0d 3402 g M Vag-Spont None N KARMA 1 KARMA Prior to Admission medications Medication Sig Start Date End Date Taking? Authorizing Provider citalopram (CeleXA) 20 mg tablet Take 1 tablet (20 mg total) by mouth 1 (one) time each day. Yes Historical Provider, Allergies[5] Objective: Vitals: 03/21/25 1120 BP: 108/77 Pulse: 78 Resp: 14 Weight: 97.5 kg Gen: Well-appearing on today's exam NEUROLOGIC: speech fluent, grossly intact PSYCH: Mood and affect appropriate. Alert and oriented x 3. Right breast: very tender to touch, mass on outer breast which I could not fully assess due to pt discomfort Left breast: no masses, NT Assessment/Plan: 34 y.o. with: 1. Breast mass, right US Breast Limited Right MG Mammo Digital Diagnostic Right cephalexin (KEFLEX) capsule 500 mg Ambulatory referral to Breast Clinic CANCELED: Ambulatory referral to Breast Clinic 2. Breast pain, right US Breast Limited Right MG Mammo Digital Diagnostic Right cephalexin (KEFLEX) capsule 500 mg Ambulatory referral to Breast Clinic CANCELED: Ambulatory referral to Breast Clinic Orders Placed This Encounter Procedures US Breast Limited Right Standing Status: Future Expected Date: 03/21/2025 Expiration Date: 03/21/2026 In what REGION should this be scheduled?: [facility] [[id number]] In what [place] LOCATION should this be scheduled?: [address] [[id number]] MG Mammo Digital Diagnostic Right Standing Status: Future Expected Date: 03/21/2025 Expiration Date: 03/21/2026 Perform a breast ultrasound if clinically indicated by Radiologist? (Note: A signed order is required. Answering yes to this question does not generate a valid order.): Yes Is the patient ?: No In what REGION should this be scheduled?: [facility] [[id number]] In what [place] LOCATION should this be scheduled?: [facility] [address] [facility] [[id number]] Ambulatory referral to Breast Clinic Standing Status: Future Expiration Date: 03/21/2026 Referral Priority: Urgent Referral Type: Consultation Referral Reason: Specialty Services Required Requested Specialty: Breast Surgery Number of Visits Requested: 1 Rx for Keflex sent to pharmacy Will f/u based on Breast Clinic recommendations Annelise Joseph CNM [1] There is no problem list on file for this patient. [2] Past Medical History: Diagnosis Date Anemia 03/24/2018 DX:Anemia; COMMENT: Ferrous fumarate 325 mg BID 04/07/18 N/V Zofran not working Can't take iron dueto vomiting after ingestion Rx Floradix instead Refer to filter tank tender helper head H/O severe anemia Anemia work-up next visit Epilepsy ([facility] V24, [facility] V28) DX:Epilepsy (HCC) [3] Past Surgical History: Procedure Laterality Date CHOLECYSTECTOMY 2008 PROCEDURE: HISTORICAL CHOLECYSTECTOMY [4] Family History Problem Relation Name Age of Onset Hypertension Mother Hypertension Father Other (Other: IDDM) Father No Known Problems Sister No Known Problems Brother Hypertension Maternal Grandmother Other (Other: IDDM) Maternal Grandmother Hypertension Maternal Grandfather Hypertension Paternal Grandmother Hypertension Paternal Grandfather Other (Other: IDDM) Paternal Grandfather Breast cancer Neg Hx Colon cancer Neg Hx Ovarian cancer Neg Hx [5] No Known Allergies documented in this encounter Plan of Treatment Upcoming Encounters Date Type Department Care Team (Late st Contact Info) Description 03/28/2025 2:00 PM EDT Appointment [facility] [address] [place] [address] 03/28/2025 2:30 PM EDT Appointment [facility] Ultrasound [address] [place] [address] Scheduled Orders Name Type Priority Associated Diagnoses Orde r Schedule US Breast Limited Right Imaging STAT Breast mass, right Breast pain, right Expected: 03/21/2025, Expires: 03/21/2026 MG Mammo Digital Diagnostic w Christiano bilat Imaging STAT Breast mass, right Breast pain, right Expected: 03/21/2025, Expires: 03/21/2026 Scheduled Referrals Name Type Priority Associated Diagnoses Order Schedule Ambulatory referral to Breast Clinic Outpatient Referral Routine Breast mass, right Breast pain, right 1 Occurrences starting 03/21/2025 until 03/21/2026 documented as of this encounter Visit Diagnoses Diagnosis Breast mass, right- Primary Lump or mass in breast Breast pain, right documented in this encounter Historical Medications * This list may reflect changes made after this encounter. citalopram (CeleXA) 20 mg tablet Take 1 tablet (20 mg total) by mouth 1 (one) time each day. added in this encounter Orders Medications Ordered That Bob ht Not Have Been Administered Count Last Ordered Date First Ordered Date cephalexin (KEFLEX) capsule 500 mg 1 2024 documented in this encounter Care Teams New Car Salesperson Relationship Specialty Start Date End Date Sammie Nix MD [address] [facility] , [address] [facility] D/B/A: [facility] [place], [place] PCP - General Internal Medicine 03/11/18 documented as of this encounter
--- OUTSIDE RECORDS SUMMARY | 2025-03-21 12:56 | XMS_ITS | Clinical Summary ---
Author Organization [facility] Address [address] [place] [address] Phone Care Team Providers Care Boom Master Name Role Phone Unavailable Primary Care Provider Unavailabl e Social History Tobacco Use Types Packs/Day Years Used Date Smoking Tobacco: Never Assessed Education Answer Date Recorded Are you interested in more education? Not on shan e 10/11/2022 Are you concerned about learning? Not on file 10/11/2022 No 10/11/2022 No 10/11/2022 Digital Access Answer Date Recorded No 11/11/2022 No 11/11/2022 Reliable internet access at home? Not on file 11/11/2022 Device with a working camera? Not on file Comments Unknown Sex and Gender Information Value Date Recorded Sex Assigned at Not on file Legal Sex Female 9:03 AM EST Gender Identity Not on file Sexual Orientation Not on file Plan of Treatment Not on file Medical Devices Not on file Additional Source Comments The information contained in this document represents components of the legal health record. It is not the complete legal health record.[facility]
--- OUTSIDE RECORDS SUMMARY | 2025-03-21 12:56 | XMS_ITS | Clinical Summary ---
Author Organization [facility] [address] [place] [address] [place] [address] Phone Care Team Providers Care Grill Chef Name Role Phone Sammie Nix MD Primary Care Provider [phone] Allergies No known active allergies Medications citalopram (CeleXA) 20 mg tablet Take 1 tablet (20 mg total) by mouth 1 (one) time each day. Active Hospital, Clinic, or Other Facility Administered Medication Ordered Dose Route Frequency Start Date End Date Status cephalexin (KEFLEX) capsule 500 mgIndications:Breast mass, right,Breast pain, right 500 mg oral 2 times daily 03/21/2025 03/31/2025 Active Encounters Date Type Department Care Team Description 03/21/2025 11:00 AM EDT Office Visit Obstetrics and Gynecology [address] [phone] Annelise Joseph CNM Breast mass, right (Primary Dx); Breast pain, right from Last 3 Months Surgical History Surgery Date Site/Laterality Comments CHOLECYSTECTOMY 2009 PROCEDURE: HISTORICAL CHOLECYSTECTOMY Medical History Medical History Date Comments Epilepsy (CMS/HCC V24, CMS/HCC V28) DX:Epilepsy (HCC) Anemia 03/24/2018 DX:Anemia; COMME NT: Ferrous fumarate 325 mg BID 04/07/18 N/V Zofran not working Can't take iron due to vomiting after ingestion Rx Floradix instead Refer to merchandising coordinator H/O severe anemia Anemia work-up next visit Family History Medical History Relation Name Comments No Known Problems Brother Hypertension Father Other: IDDM Father Hypertension Maternal Grandfather Hypertension Maternal Grandmother Other: IDDM Maternal Grandmother Hypertension Mother Hypertension Paternal Grandfather Other: IDDM Paternal Grandfather Hypertension Paternal Grandmother No Known Problems Sister Breast cancer Neg Hx Colon cancer Neg Hx Ovarian cancer Neg Hx Relation Name Status Comments Brother Father Maternal Grandfather Maternal Grandmother Mother Paternal Grandfather Paternal Grandmother Sister Social History Tobacco Use Types Packs/Day Years Used Date Smoking Tobacco: Never Smokeless Tobacco: Never Tobacco Cessation:Counseling Given: Not Answered Alcohol Use Standard Drinks/Week Comments Not Currently 0 (1 standard drink = 0.6 oz pur e alcohol) Comments No Sex and Gender Information Value Date Recorded Sex Assigned at Not on file Legal Sex Female 12:24 AM EST Gender Identity Not on file Sexual Orientation Not on file Obstetrics History * This document contains information received from the source organization and may not represent a complete record from that organization. Para Term AB IAB SAB Ectopic Multiple Livin g Live Births 6 4 4 0 0 0 5 5 Date Outcome GA Total Labor Labor/2nd/3rd Weight Sex Type Anes PTL Emilia A1 A5 Name Clin Livin g 2008 Term 40w 0d 3402 g (120 oz) M Vag-S pont None N Livin g Edwin Complications:None Delivery Location:[facility] 2010 Term 40w 0d 2722 g (96 oz) F Vag-S pont None N Livin g Va na Complications:None Delivery Location:[facility] 2011 Term 38w 0d 2722 g (96 oz) M Vag-S pont None N Livin g José Miguel Complications:None Delivery Location:[facility] 2014 2016 Term 38w 0d 2722 g (96 oz) F Vag-S pont Epidur al N Livin g Kianex is Complications:None Delivery Location:[facility] Last Filed Vital Signs Vital Sign Reading Time Taken Comments Blood Pressure 108/77 03/21/2025 11:20 AM EDT Pulse 78 03/21/2025 11:20 AM EDT Temperature - - Respiratory Rate 14 03/21/2025 11:20 AM EDT Oxygen Saturation - - Inhaled Oxygen Concentration - - Weight 97.5 kg (215 lb) 03/21/2025 11:20 AM EDT Height 157.5 cm (5' 2 ) 09/08/2024 9:32 AM EDT Body Mass Index 39.32 09/08/2024 9:32 AM EDT Plan of Treatment Upcoming Encounters Date Type Department Care Team (Late st Contact Info) Description 03/28/2025 2:00 PM EDT Appointment [facility] at [facility] [address] [place] [id number] 03/28/2025 2:30 PM EDT Appointment [facility] Ultrasound [address] [place] [phone] Health Maintenance Due Date Last Done Comments Hepatitis B Vaccines (1 of 3 - 19+ 3-dose series) 2008 HPV Vaccines (1 - 3-dose SCD M series) 2016 HIV Screening 05/18/2022 Hepatitis C Screening 05/18/2022 Social Influencers of Health Screening 05/18/2022 Depression Screening 06/15/2024 Cervical Cancer Screening: P ap Smear 11/01/2024 11/01/2021 COVID-19 Vaccine ( - 2023-2 5 season) 2025 Influenza Vaccine (#1) 2025 2018 DTaP,Tdap,and Td Vaccines (2 - Td or Tdap) 08/18/2028 08/18/2018 RSV Immunization Adult Patie nts (1 - 1-dose 75+ series) 2064 HIB Vaccines Aged Out No longer eligi ble based on patient's age to complete this topic Hepatitis A Vaccines Aged Out No long er eligible based on patient's age to complete this topic IPV Vaccines Aged Out No longer eligi ble based on patient's age to complete this topic MMR Vaccines Aged Out No longer eligi ble based on patient's age to complete this topic Meningococcal ACWY Vaccine Aged Out N o longer eligible based on patient's age to complete this topic Meningococcal B Vaccine Aged Out No l onger eligible based on patient's age to complete this topic Pneumococcal Vaccine: Pediat rics (0 to 5 Years) and At-Risk Patients (6 to 49 Years) Aged Out No longer eligi ble based on patient's age to complete this topic RSV Immunization Patients Un mega 20 months Aged Out No longer eligible b ased on patient's age to complete this topic Varicella Vaccines Aged Out No longer eligible based on patient's age to complete this topic Procedures Procedure Name Priority Date/Time Associated Diagnosis Comments PAP SMEAR Routine 11/01/2021 from Last 3 Months or Most Recently Relevant to Health Maintenance Results * Pap smear (11/01/2021) 11/01/2021 Narrative HISTORICAL TESTING LAB RESULTING AGENCY - 11/15/2021 4:55 PM EDT [id number] THINPREP PAP, IMAGED: NEGATIVE FOR SQUAMOUS INTRAEPITHELIAL LESION AND MALIGNANCY . NOTE: THE PAP TEST IS A SCREENING TEST WITH AN INHERENT FALSE NEGATIVE RATE. AUTOMATED PRESCREENING OF ALL LIQUID BASED SPECIMENS IS PERFORMED BY THE THINPREP IMAGING SYSTEM UNLESS OTHERWISE STATED. [place] LOWE(ASCP) (CASE ELECTRONICALLY SIGNED 11 15 2021) RESULT OF APTIMA HIGH RISK HPV ASSAY: HIGH RISK HPV: NEGATIVE (SEROTYPES 16,18,31,33,35,39,45,51,52,56,58,59,66,68) COMPLETED ON 2021-11-05 ADEQUACY: SATISFACTORY ENDOCERVICAL/TRANSFORMATION ZONE COMPONENT PRESENT. SOURCE: THINPREP PAP HPV ANY DX: REFLEX 16 AND 18, CERVICAL, IMAGED CLINICAL INFORMATION: HPV ANY DIAGNOSIS. PAP HX NEGATIVE, [Z12.4] Marielos Godinez [facility] LAB CYTOLOGY ORDERABLES Final R esult HISTORICAL TESTING LAB RESULTING AGENCY from Last 3 Months or Most Recently Relevant to Health Maintenance Insurance [facility] Care Teams Grill Chef Relationship Specialty Start Date End Date Sammie Nix MD [address] [facility] , [address] [place] [address] Physician Associ D/B/A: [facility] [place] PCP - General Internal Medicine 03/11/18
== END 2025-03-21 10:47 | disposition left against medical advice (07) ==
PROVIDERS: Emergency Provider Emergency Medicine; PCP Internal Medicine
DX: N64.4 Mastodynia (principal)
CPT/HCPCS: 99281